=== PATIENT | female | born 1960 | race Caucasian/White ===

== ENCOUNTER → 2019-11-25 08:01 | Outpatient (CLI) | payer OTHER, SELFPAY ==
--- NOTE | ~2019-11-25 | US_ITS ---
US right upper quadrant INDICATION: Right upper quadrant pain. PROCEDURE: Realtime right upper abdominal ultrasound. COMPARISON: CT dated 05/15/2018 FINDINGS: The pancreas is normal without focal mass or pancreatic ductal dilation. Liver echotexture is increased, consistent with fatty infiltration. No focal mass. There is normal directional flow i n the portal vein. There are gallstones. No gallbladder wall thickening or pericholecystic fluid. Common bile duct [place] ures 4 mm. No sonographic Valdez's sign. IMPRESSION: 1: Cholelithiasis. 2: Hepatic steatosis. Reviewed, dictated and finalized at location A.
== END ==
PROVIDERS: PCP Internal Medicine; Visit Provider Student in an Organized Health Care Education/Training Program
DX: K80.20 Calculus of gallbladder without cholecystitis without obstruction (principal); K76.0 Fatty (change of) liver, not elsewhere classified
CPT/HCPCS: 76705

== ENCOUNTER 2020-01-23 00:35 | Emergency (ER) | payer OTHER, SELFPAY ==
--- NOTE | ~2020-01-23 | CT_ITS ---
EXAMINATION: CT abdomen pelvis w con DATE: 01/23/2020 03:12 INDICATION: Abdominal pain. TECHNIQUE: Computed tomography (CT) of the abdomen and pelvis was performed with 100 mL Omnipaque 350 intravenous contrast. Automated exposure control and iterative reconstruction technique were employe d. The dose-length product was 1228.43 mGy-cm. COMPARISON: CT abdomen and pelvis 05/15/2018 FINDINGS: The visualized portions of the lung bases demonstrate mild atelectasis. No pleural effusion . The heart size is normal. No pericardial effusion. There is diffuse hepatic steatosis. There are ga llstones in the gallbladder, which is normal in size. The spleen, pancreas, adrenal glands, normal. T here are cysts in the kidneys measuring up to 9 mm on the left. There is an 8 mm stone in left kidney . There is a 2 mm stone in left kidney. Uterine fibroids are noted. There is diverticulosis of the co danyelle without evidence of diverticulitis. There are no dilated loops of bowel. The appendix is normal. There is a lap band in expected position. There are no pathologically enlarged lymph nodes. There is no free intraperitoneal fluid. There is mild thoracolumbar spondylosis. IMPRESSION: 1. Cholelithiasis. No evidence of acute cholecystitis. 2. Diffuse hepatic steatosis. 3. Nonobstructing left kidney stones. Reviewed, dictated and finalized at location A.
[2020-01-23 00:57] VITALS: BP 131/96; PULSE 55; RESP 18; TEMP 36.8; O2SAT 98
[2020-01-23 01:58] LABS: Basophils Absolute Auto 0.1 K/mm3 (0.0-0.1); Basophils Percent Auto 0.6 % (0.2-1.2); Eosinophils Absolute Auto 0.4 K/mm3 (0-0.3); Eosinophils Percent Auto 3.5 % (0-4.4); Hematocrit 39.7 % (37.0-47.0); Hemoglobin 13.4 g/dL (12.0-15.0); Immature Granulocyte Absolute 0.03 K/mm3 (0.00-0.031); Immature Granulocyte Percent A 0.3 % (0-0.5); Lymphocytes Absolute Auto 3.84 K/mm3 (0.9-3.2); Mean Corpuscular HGB Conc 33.8 g/dl (32-36); Mean Corpuscular Hemoglobin 28.1 pg (26-34); Mean Corpuscular Volume 83.2 fl (80-100); Mean Platelet Volume 10.1 fl (7.4-10.4); Monocytes Absolute Auto 0.7 K/mm3 (0.1-0.6); Monocytes Percent Auto 6.7 % (2.6-8.5); Neutrophils Absolute Auto 5.7 K/mm3 (1.3-6.7); Neutrophils Percent Auto 52.9 % (45.5-73.1); Platelet Count Result 361 k/mm3 (150-375); Red Blood Count 4.77 M/mm3 (4.2-5.4); Red Cell Distribution Width 13.3 % (11.5-14.5); White Blood Count 10.7 K/mm3 (4.5-10.0)
[2020-01-23 02:04] LABS: Add Urine Microscopic? YES; Appearance Urine Clear (Clear); Bacteria Urine Trace /hpf; Bilirubin Urine Negative (Negative); Blood Urine Negative (Negative); Calcium Oxalate Crystals Urine Present /hpf; Color Urine Yellow (Yellow); Glucose Urine UA Negative (Negative); Ketones Urine Negative (Negative); Leukocyte Esterase Ur Negative LEU/UL (Negative); Mucus Urine Rare /lpf; Nitrate Urine Negative (Negative); Protein Urine 1+ mg/dL (Negative); Specific Grav Ur 1.017 (1.001-1.035); Squamous Epithelial Cell Urine Rare /hpf (Few); Urobilinogen Urine Negative mg/dL (<2.0)
[2020-01-23 02:19] VITALS: BP 128/77; PULSE 62; RESP 18; O2SAT 99
[2020-01-23 02:19] LABS: Alanine Aminotransferase 28 U/L (4-35); Albumin Level 4.6 g/dL (3.5-5.1); Alkaline Phosphatase 77 U/L (38-126); Aspartate Amino Transferase 25 U/L (14-36); Bilirubin,Total 0.2 mg/dL (0.2-1.3); Blood Urea Nitrogen 13 mg/dL (7-17); Carbon Dioxide 25 mmol/L (22-30); Chloride 103 mmol/L (98-107); Estimated Glomerular Filt Rate > 60; Glucose 126 mg/dL (65-105); Lipase 156 U/L (23-300); Potassium 3.9 mmol/L (3.4-5.0); Sodium 137 mmol/L (137-145)
--- NOTE | 2020-01-23 02:39 | PC.NURSE ---
pt calls this rn into room. pt states really? it's been 2 hours. why has the doctor been in here to see my roommate and not me when hes been here for 10 minutes? im in so much pain this rn states that doctor hasn't been in to see her neighbor and that she will be in as soon as she can. she states you have done nothing for me. i need a picture of my gallbladder to see whats going on. this rn informs pt that this rn placed and IV in her hand, dougie and sent blood, and sent urine to get some results. pt then raises her hand with IV in it and states i don't even care about this. i just need to know how my gallbladder is. how long is it going to be? this rn assures pt that doctor will be in as soon as she can and that i can't order a CT of her abdomen without doctor assessing her. pt states sorry im being crabby, but this is ridiculous. this RN apologizes and walks out of room. charge nurse notified of pt's concerns.
--- NOTE | 2020-01-23 02:50 | ED.ABDPAIN ---
HPI - Abdominal Pain General Chief Complaint: Abdominal Pain Stated Complaint: gall bladder burst Time Seen by Provider: 01/23/20 02:43 History of Present Illness HPI narrative: Patient presents to the ER with her right upper quadrant pain, and known gallbladder disease. She is scheduled to have it out on the , but she has been vomiting today cannot hold down even liquids, and the pain is much more intense. She gives it a 7 out of 10, with radiation to the back. She denies fever or chills, but has perimenopausal sweats. She does not smoke drink or do drugs. 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 Surgeries she has had 3 C-sections, and throat surgery on her vocal cords. Related Data Allergies Allergy/AdvReac Type Severity Reaction Status Date / Time No Known Allergies Allergy Unknown Verified 01/23/20 00:38 Review of Systems Review of Systems: Narrative: CONSTITUTIONAL: Denies fever, chills, or sweats. EYES: Denies visual changes, redness, or discharge. ENT: Denies rhinorrhea, congestion, sore throat, or otalgia. CARDIOVASCULAR: Denies chest pain, palpitations, or edema. RESPIRATORY: Denies cough or dyspnea. GASTROINTESTINAL: She has abdominal pain, nausea, vomiting, and diarrhea. GENITOURINARY: Denies dysuria or hematuria. SKIN: Denies rash or itching. MUSCULOSKELETAL: Denies back pain, joint pain, or myalgia. NEUROLOGIC: Denies headache, numbness, or weakness. PSYCHIATRIC: Denies anxiety or depression. [facility] Surgical History Surgical History (Updated 01/23/20 @ 02:52 by Gricelda Linares MD) History of Social History Social History (Updated 01/23/20 @ 02:53 by Gricelda Linares MD) Smoking status: Never smoker Alcohol intake: current Substance use: never Exam Narrative: Exam Narrative: GENERAL: Well-appearing, well-nourished, and in no acute distress. Overweight HEAD: Normocephalic, atraumatic. EYES: PERRLA and EOMI. ENT: Nares clear, no rhinorrhea or epistaxis. Mucous membranes moist. NECK: Supple. CHEST: Clear to auscultation. No respiratory distress. HEART: Regular rate and rhythm. No murmur heard. Normal peripheral pulses. ABDOMEN: Soft, nontender, nondistended, normal active bowel sounds. EXTREMITIES: Normal range of motion. No edema. SKIN: Warm, dry, no rash. NEURO: No focal deficits. Alert and oriented x3. PSYCH: Normal mood and affect. Imelda Course Reevaluation(s) Reevaluation #1: 4 AM she is feeling much better, nausea is as passed and pain is improved. She can be discharged to home, and follow-up on her scheduled date of the . Date: 01/23/20 Time: 04:02 Vital Signs Vital signs: Vital Signs Temperature 98.3 F 01/23/20 00:57 Pulse Rate 55 L 01/23/20 00:57 Respiratory Rate 18 01/23/20 00:57 Blood Pressure 131/96 H 01/23/20 00:57 Pulse Oximetry 98 01/23/20 00:57 Temperature 98.3 F 01/23/20 00:57 Pulse Rate 69 01/23/20 03:43 Respiratory Rate 18 01/23/20 03:43 Blood Pressure 129/83 01/23/20 03:43 Pulse Oximetry 100 01/23/20 03:43 MDM - Abdominal Pain MDM Narrative Medical decision making narrative: She is presenting with increased symptoms with her known gallbladder disease, it is too late in the day to get an ultrasound so we will get a CAT scan. She may need observation admission for IV hydration and pain management, even if she does not need emergent cholecystectomy. Medical Records Attestation: I reviewed the patient's medical records. Lab Data Attestation: I reviewed the patient's lab results. Result diagrams: 01/23/20 01:24 01/23/20 01:56 Labs: Lab Results 01/23/20 01/23/20 01/23/20 Range/Units 01:24 01:24 01:56 WBC 10.7 H (4.5-10.0) K/mm3 RBC 4.77 (4.2-5.4) M/mm3 Hgb 13.4 (12.0-15.0) g/dL Hct 39.7 (37.0-47.0) % MCV 83.2 (80-100) fl MCH 28.1 (26-34) pg MCHC 33.8 (32-36) g/dl RDW 13.3 (11.5-14.5) % Plt Count 361 (1
[2020-01-23] MEDS: ONDANSETRON INJ 4 MG/2 ML VIAL IV PUSH (02:54)
[2020-01-23] MEDS: SODIUM CHLORIDE 0.9% IV 1,000 ML 999 ML IV CONT (02:54)
[2020-01-23] MEDS: MORPHINE SULFATE 4 MG/ML INJ IV PUSH (02:54)
[2020-01-23 03:43] VITALS: BP 129/83; PULSE 69; RESP 18; O2SAT 100
[2020-01-23 04:12] VITALS: BP 120/76; PULSE 74; RESP 20; O2SAT 99
== END 2020-01-23 04:14 | disposition home or self-care (01) ==
PROVIDERS: Emergency Provider Emergency Medicine; PCP Internal Medicine
DX: K80.10 Calculus of gallbladder with chronic cholecystitis without obstruction (principal)
CPT/HCPCS: 36415; 74177; 80053; 81001; 81025; 83690; 85025; 96361; 96374; 96375; 99284; J2270; J2405; J7030; Q9967

== ENCOUNTER 2020-01-25 04:11 | Emergency (ER) | payer OTHER, SELFPAY ==
--- NOTE | ~2020-01-25 | US_ITS ---
EXAMINATION: US right upper quadrant DATE: 01/25/2020 07:58 INDICATION: Right upper quadrant pain TECHNIQUE: Multiple grayscale and Doppler ultrasound images of the abdomen were obtained. COMPARISON: 11/25/2019 FINDINGS: Bowel gas obscures visualization of the pancreas. The visualized portions of the pancreas a re unremarkable. The liver demonstrates increased echogenicity, heterogenous echotexture, and decreas ed through transmission. No surface nodularity. Normal hepatopetal flow in the main portal vein. Ston es are present in the gallbladder. There is no gallbladder wall thickening or pericholecystic fluid. The normal common bile duct measures 4 mm. Sonographic Valdez sign is positive. IMPRESSION: 1. Cholelithiasis and positive sonographic Valdez sign without gallbladder wall thickening or pericho lecystic fluid. Findings are equivocal for acute cholecystitis. Consider nuclear hepatobiliary scan. 2. Diffuse hepatic steatosis. Reviewed, dictated and finalized at location A. IMPRESSION: 1. Cholelithiasis and positive sonographic Valdez sign without gallbladder wall thickening or pericholecystic fluid. Findings are equivocal for acute cholecys titis. Consider nuclear hepatobiliary scan. 2. Diffuse hepatic steatosis.
[2020-01-25 04:18] VITALS: BP 153/93; PULSE 73; RESP 17; TEMP 36.4; O2SAT 98
[2020-01-25 04:54] LABS: Basophils Percent Auto 0.4 % (0.2-1.2); Eosinophils Absolute Auto 0.3 K/mm3 (0-0.3); Eosinophils Percent Auto 3.3 % (0-4.4); Hematocrit 39.3 % (37.0-47.0); Hemoglobin 13.3 g/dL (12.0-15.0); Immature Granulocyte Absolute 0.04 K/mm3 (0.00-0.031); Immature Granulocyte Percent A 0.4 % (0-0.5); Lymphocytes Absolute Auto 1.92 K/mm3 (0.9-3.2); Lymphocytes Percent Auto 20.6 % (18.3-44.2); Mean Corpuscular HGB Conc 33.8 g/dl (32-36); Mean Corpuscular Hemoglobin 28.2 pg (26-34); Mean Corpuscular Volume 83.3 fl (80-100); Mean Platelet Volume 9.3 fl (7.4-10.4); Monocytes Absolute Auto 0.5 K/mm3 (0.1-0.6); Monocytes Percent Auto 5.5 % (2.6-8.5); Neutrophils Absolute Auto 6.5 K/mm3 (1.3-6.7); Neutrophils Percent Auto 69.8 % (45.5-73.1); Platelet Count Result 326 k/mm3 (150-375); Red Blood Count 4.72 M/mm3 (4.2-5.4); Red Cell Distribution Width 13.3 % (11.5-14.5); White Blood Count 9.3 K/mm3 (4.5-10.0)
[2020-01-25] MEDS: MORPHINE SULFATE 4 MG/ML INJ IV PUSH ×3 (04:54→07:20)
[2020-01-25] MEDS: ONDANSETRON INJ 4 MG/2 ML VIAL IV PUSH (04:54)
[2020-01-25] MEDS: SODIUM CHLORIDE 0.9% IV 1,000 ML 999 ML IV CONT ×2 (04:55→08:20)
[2020-01-25 05:05] LABS: Alanine Aminotransferase 25 U/L (4-35); Albumin Level 4.4 g/dL (3.5-5.1); Alkaline Phosphatase 81 U/L (38-126); Aspartate Amino Transferase 23 U/L (14-36); Bilirubin,Total 0.2 mg/dL (0.2-1.3); Blood Urea Nitrogen 14 mg/dL (7-17); Calcium 9.4 mg/dL (8.4-10.2); Carbon Dioxide 25 mmol/L (22-30); Chloride 104 mmol/L (98-107); Estimated Glomerular Filt Rate > 60; Glucose 134 mg/dL (65-105); Lipase 153 U/L (23-300); Potassium 4.1 mmol/L (3.4-5.0); Sodium 137 mmol/L (137-145)
[2020-01-25 05:54] LABS: Add Urine Microscopic? YES; Appearance Urine Clear (Clear); Bacteria Urine Trace /hpf; Bilirubin Urine Negative (Negative); Blood Urine Negative (Negative); Calcium Oxalate Crystals Urine Many /hpf; Color Urine Yellow (Yellow); Glucose Urine UA Negative (Negative); Ketones Urine Negative (Negative); Leukocyte Esterase Ur Negative LEU/UL (Negative); Mucus Urine Rare /lpf; Nitrate Urine Negative (Negative); Protein Urine Negative (Negative); RBC Urine 0-2 /hpf (0-2); Specific Grav Ur 1.023 (1.001-1.035); Squamous Epithelial Cell Urine Rare /hpf (Few)
--- NOTE | 2020-01-25 06:09 | ED.ABDPAIN ---
HPI - Abdominal Pain General Chief Complaint: Abdominal Pain <Merlin Escobar MD - Last Filed: 01/25/20 06:40> Stated Complaint: ABD pain <Merlin Escobar MD - Last Filed: 01/25/20 06:40> Time Seen by Provider: 01/25/20 04:23 <Merlin Escobar MD - Last Filed: 01/25/20 06:40> History of Present Illness HPI narrative: Patient is a 59-year-old female who presents ER with right upper quadrant abdominal pain. Patient patient has been diagnosed with symptomatic cholelithiasis. She was seeing a general surgeon at [facility] to have a cholecystectomy when COVID-19 struck the country and every body shut down. She has had several visits the ER for symptomatic cholelithiasis and has been able to go home. She reports this is her third ER visit. Denies fevers or chills or sweats. Patient reports pain came back suddenly this morning. It sharp and in the right upper quadrant. It goes to her right back. Associate with nausea and vomiting. No alleviating factors, she has tried [place]. She reports she had some oatmeal last night. She has been avoiding fatty foods. <Merlin Escobar MD - Last Filed: 01/25/20 06:40> Related Data Allergies/Adverse Reactions: Allergies Allergy/AdvReac Type Severity Reaction Status Date / Time No Known Allergies Allergy Unknown Verified 01/23/20 00:38 <Merlin Escobar MD - Last Filed: 01/25/20 06:40> Review of Systems Review of Systems: All systems reviewed & are unremarkable except as noted in HPI and below <Merlin Escobar MD - Last Filed: 01/25/20 06:40> Constitutional: Constitutional: Denies chills, Denies fever(s) and Denies weakness <Merlin Escobar MD - Last Filed: 01/25/20 06:40> Gastrointestinal: Gastrointestinal: Reports abdominal pain, Denies diarrhea, Reports nausea and Reports vomiting <Merlin Escobar MD - Last Filed: 01/25/20 06:40> PMFSH Past Medical History Medical History: Medical History (Updated 01/25/20 @ 08:45 by Gricelda Linares MD) Anxiety Cholelithiasis Depression Hypertension <Merlin Escobar MD - Last Filed: 01/25/20 06:40> Surgical History Surgical History: Surgical History (Updated 01/25/20 @ 06:36 by Merlin Escobar MD) History of Hx of laparoscopic gastric banding <Merlin Escobar MD - Last Filed: 01/25/20 06:40> Social History Social History: Social History (Updated 01/23/20 @ 02:53 by Gricelda Linares MD) Smoking status: Never smoker Alcohol intake: current Substance use: never <Merlin Escobar MD - Last Filed: 01/25/20 06:40> Exam Narrative: Exam Narrative: GENERAL: Uncomfortable-appearing, well-nourished, and in no acute distress. HEAD: Normocephalic, atraumatic ENT: Mucous membranes moist. NECK: SuppleCHEST: Clear to auscultation. No respiratory distress. HEART: Regular rate and rhythm. Normal peripheral pulses. ABDOMEN: Soft, tender palpation right upper quadrant guarding, nondistended. EXTREMITIES: Normal range of motion. No edema. SKIN: Warm, dry, no rash. NEURO: Alert and oriented x3. PSYCH: Normal mood and affect. <Merlin Escobar MD - Last Filed: 01/25/20 06:40> Course Course Emergency Course: Patient is received 8 mg of morphine and still has persistent pain where she is doubled over the bed. Will obtain ultrasound and then patient require surgical consultation. <Merlin Escobar MD - Last Filed: 01/25/20 06:40> Reevaluation(s) Reevaluation #1: Assumed care at 7:08 AM. Patient is leaning up against her bed unable to sit, complaining of pain 5 out of 10. Her daughter is keeping her company. She would like some more pain medicine. She is awaiting ultrasound. She is hoping that something definitive will be done today. Gricelda Linares <Gricelda Linares MD - Last Filed: 01/25/20 08:46> Date: 01/25/20 <Gricelda Linares MD - Last Filed: 01/25/20 08:46> Time: 07:09 <Gricelda Linares MD - Last Filed: 01/25/20 08:46> Mary
[2020-01-25 06:15] VITALS: BP 133/87; PULSE 88; RESP 17; O2SAT 97
[2020-01-25 08:50] VITALS: BP 137/70; PULSE 80; RESP 12; O2SAT 99
== END 2020-01-25 08:53 | disposition home or self-care (01) ==
PROVIDERS: Emergency Medicine; Emergency Provider Emergency Medicine
DX: K80.12 Calculus of gallbladder with acute and chronic cholecystitis without obstruction (principal); I10 Essential (primary) hypertension; F32.9 Major depressive disorder, single episode, unspecified; F41.9 Anxiety disorder, unspecified; Z98.84 Bariatric surgery status
CPT/HCPCS: 36415; 76705; 80053; 81001; 81025; 83690; 85025; 96361; 96374; 96375; 96376; 99284; J2270; J2405; J7030

== ENCOUNTER 2020-01-27 07:56 | Outpatient (CLI) | payer OTHER, SELFPAY | END 2020-01-27 07:57 | disposition home or self-care (01) | PROVIDERS: Visit Provider Surgery | DX: Z01.812 Encounter for preprocedural laboratory examination (principal); Z20.828 Contact with and (suspected) exposure to other viral communicable diseases | CPT/HCPCS: 87635; C9803; U0003 ==

== ENCOUNTER 2020-01-27 14:15 | Outpatient (CLI) | payer OTHER, SELFPAY ==
--- NOTE | 2020-01-27 14:20 | ECG_ITS ---
Measurements Intervals [place] Rate: 59 P: 34 GA: 156 QRS: 3 QRSD: 91 T: 2 QT: 398 QTc: 396 Interpretive Statements SINUS BRADYCARDIA DELAYED PRECORDIAL R/S TRANSITION BORDERLINE T WAVE ABNORMALITY- INFERIOR LEADS BASELINE ARTIFACT- I, II, III, AVR, AVL, AVF BORDERLINE ECG Electronically Signed On 01-27-2020 14:53:37 CDT by Chino Marino D.O.
[2020-01-27 15:21] LABS: Alanine Aminotransferase 33 U/L (4-35); Albumin Level 4.4 g/dL (3.5-5.1); Alkaline Phosphatase 69 U/L (38-126); Amylase 72 U/L (30-110); Aspartate Amino Transferase 36 U/L (14-36); Bilirubin,Total 0.7 mg/dL (0.2-1.3); Lipase 90 U/L (23-300)
== END 2020-01-27 14:16 | disposition home or self-care (01) ==
LOC: ANHSURGERY 14:20
PROVIDERS: PCP Internal Medicine; Visit Provider Surgery
DX: Z01.818 Encounter for other preprocedural examination (principal); K80.20 Calculus of gallbladder without cholecystitis without obstruction; I10 Essential (primary) hypertension; R94.31 Abnormal electrocardiogram [ECG] [EKG]
CPT/HCPCS: 36415; 80076; 82150; 83690; 86850; 86900; 86901; 93005

== ENCOUNTER 2020-01-29 00:35 | Day surgery (SDC) | payer OTHER, SELFPAY ==
[2020-01-27 09:50] VITALS: BMI 42.0
--- NOTE | 2020-01-28 20:43 | PM.SD ---
Same Day Admit/Disch: HPI History of Present Illness Chief complaint: Cholecystitis, cholelithiasis Narrative: Marija Mathur is a 59 year old female who has had multiple episodes of postprandial RUQ abdominal pain and is known to have gallstones by U/S. She was set up to have cholecystectomy at another facility and when the pandemic hit, her surgery was postponed. She has continued to have symptoms and has had to go to the ER 3 times since then. She was in [place] ER on Monday with another episode of RUQ sharp, severe pain that radiated throught to her back and was associated with nausea and emesis. U/S done then showed gallstones and evidence of acute cholecystitis with positive sonographic Valdez's sign. Her pain again improved and she preferred to go home and have outpatient laparoscopic cholecystectomy. She has a son with Autism at home. She has continued to have RUQ pain although not as severe as when she was in the ER. She eats only a very bland diet and little of that. She has a history of a previous laparoscopic gastric banding about 7 years ago. She has also had an abdominoplasty several years ago. [facility] Past Medical History Medical History Anxiety Depression Hypertension Surgical History Surgical History (Updated 01/29/20 @ 07:18 by Adam Reid MD) History of abdominoplasty History of Hx of laparoscopic gastric banding Social History Social History Smoking status: Never smoker Alcohol intake: current Substance use: never Same Day Admit/Disch: Med Pre-admit Medications Home Medications Medication Instructions Recorded Confirmed Type ondansetron HCl [Zofran] 4 mg PO Q6H PRN #14 tablet 01/25/20 01/29/20 Rx oxycodone-acetaminophen [Percocet] 1 tablet PO Q4H PRN #20 tablet 01/25/20 01/29/20 Rx promethazine 25 mg RECTAL Q6H PRN #12 each 01/25/20 01/27/20 Rx Hui Mulligan 6 tablet PO DAILY 01/27/20 01/29/20 History cholecalciferol (vitamin D3) 125 mcg PO DAILY 01/27/20 01/29/20 History [Vitamin D3] lisinopril 10 mg PO DAILY 01/27/20 01/29/20 History lorazepam 1 mg PO TID PRN 01/27/20 01/29/20 History multivitamin 1 tablet PO DAILY 01/27/20 01/29/20 History sertraline 100 mg PO DAILY 01/27/20 01/29/20 History ketorolac 10 mg PO Q6H 4 Days #16 tablet 01/29/20 Rx oxycodone-acetaminophen [Percocet] 1 - 2 tablet PO Q6H PRN #12 tablet 01/29/20 Rx Exam Const: General: comfortable, no acute distress, alert, awake and uncomfortable Nutritional Appearance: obese Orientation/consciousness: patient oriented x3 Limitations: no limitations HENMT: Head: normocephalic and atraumatic Ears: hearing grossly normal bilaterally and external ears normal General nose exam: Normal external nose present, no nasal discharge noted and no epistaxis Face and sinus: normal facial exam, face symmetric, no tenderness and dry mucous membranes Mouth: Yes Normal oral and palatal mucosa present and No tongue abnormal Eyes: Conjunctivae: conjunctivae normal Sclera: sclerae normal Pupils: Equal, round and reactive pupils present EOM: EOMs intact bilaterally Neck: Neck: no lymphadenopathy, nontender and No submandibular swelling Thyroid: thyroid normal and nontender Lymphatic: lymphadenopathy not noted Chest: Chest palpation & inspection: mass and no tenderness Resp: Effort & Inspection: normal respiratory effort, no audible wheezes, no cough and no pursed lip breathing Auscultation: clear to auscultation bilaterally Cardio: Rate: regular rate Rhythm: regular rhythm Heart sounds: no gallops, no murmurs and no rubs GI: Inspection: normal to inspection, non-distended, obesity and scar GI Palp: Yes Soft to palpation, Yes Tenderness to palpation present (GI) (RUQ), No Hepatomegaly present, No Splenomegaly present, No Hernia present, No Palpable mass present and No Ascites present Auscultation: normoactive bowel so
[2020-01-29] VITALS (9 sets, daily range): BP systolic 102–147; BP diastolic 53–97; PULSE 54–77; RESP 12–18; TEMP 36.1–36.6; O2SAT 95–100
[2020-01-29] MEDS: LACTATED RINGERS 1,000 ML 30 ML IV CONT ×2 (06:20→08:45)
--- NOTE | 2020-01-29 06:59 | WPDANESEPPF ---
Anes - Initial Pre Proc Eval Procedure: Operation Date: 01/29/20 07:30 Proposed Procedures p Laparoscopic Cholecystectomy - Adam Reid MD Date/Time: 01/29/20 06:59 Surgeon: Adam Reid MD Pre Op Diagnosis: Cholecystitis, cholelithiasis Patient Data Age: 59 Gender: F Height: 5 ft 2 in Weight: 101.8 kg Last Vital Signs Temp 36.6 C 01/29/20 06:36 Pulse 66 01/29/20 06:36 Resp 18 01/29/20 06:36 BP 147/97 H 01/29/20 06:36 Pulse Ox 96 01/29/20 06:36 Allergies Allergy/AdvReac Type Severity Reaction Status Date / Time No Known Allergies Allergy Unknown Verified 01/29/20 06:00 Home Medications Medication Instructions Recorded Confirmed Type ondansetron HCl [Zofran] 4 mg PO Q6H PRN #14 tablet 01/25/20 01/29/20 Rx oxycodone-acetaminophen [Percocet] 1 tablet PO Q4H PRN #20 tablet 01/25/20 01/29/20 Rx promethazine 25 mg RECTAL Q6H PRN #12 each 01/25/20 01/27/20 Rx Hui Mulligan 6 tablet PO DAILY 01/27/20 01/29/20 History cholecalciferol (vitamin D3) 125 mcg PO DAILY 01/27/20 01/29/20 History [Vitamin D3] lisinopril 10 mg PO DAILY 01/27/20 01/29/20 History lorazepam 1 mg PO TID PRN 01/27/20 01/29/20 History multivitamin 1 tablet PO DAILY 01/27/20 01/29/20 History sertraline 100 mg PO DAILY 01/27/20 01/29/20 History Patient hx anesthesia problems: none Family hx anesthesia problems: none PMFSH Past Medical History Medical History Anxiety Depression Hypertension Surgical History Surgical History History of Hx of laparoscopic gastric banding Social History Social History Smoking status: Never smoker Alcohol intake: current Substance use: never Anes - Eval Final PreProcedure Day of Procedure 01/29/20 06:59 Patient weight: morbidly obese Heart: regular rate and rhythm Lungs: clear to auscultation Airway: Mallampati scale class III Neurological: alert and oriented Last oral intake: >/= 8 hours ASA classification: III Emergent: no Anesthetic plan: proceed Anesthesia type and monitoring: general ETT and standard monitoring Informed Consent: The patient's anesthetic plan and its attendant risks and benefits were discussed with the patient/family/POA. Questions were solicited and answers provided to the satisfaction of the patient/family/POA.
--- NOTE | 2020-01-29 07:15 | WPDHPUPDATE1 ---
History and Physical Update Update Date/Time: 01/29/20 07:15 History and Physical has been reviewed, including an updated exam of the patient. There are NO changes in the patient's condition. Risks, benefits, and alternatives have been discussed and questions answered. Patient agrees to proceed with procedure.
[2020-01-29] MEDS: ceFAZolin 2 GM/D5W 50 ML 2 GM/50 ML BAG IVPB (07:26)
[2020-01-29] MEDS: BUPIVACAINE/EPINEPHRINE 0.5% 30 ML VIAL INFILTRATE (08:06)
--- NOTE | 2020-01-29 08:57 | P.OP_ITS ---
Procedure Note - Detailed Date of procedure: 01/29/20 Pre-op diagnosis: Acute on chronic cholecystitis, cholelithiasis Acute on chronic cholecystitis, cholelithiasis Post-op diagnosis: other (Acute on chronic cholecystitis, cholelithiasis with cystic duct obstruction and hydrops) Procedure performed: Laparoscopic cholecystectomy Description of procedure: The patient was taken to surgery and induced into general anesthesia. The abdomen was prepped and draped. Trocars were placed in the usual fashion using 0.5% Marcaine with epinephrine and applied Medical optical trocars. A 5 millimeter camera was used. The gallbladder had a thickened wall and was tensely distended. There were really no adhesions to the gallbladder but it was obviously acutely and chronically inflamed. The gallbladder was decompressed with a laparoscopic aspirator. The bile was clear consistent with hydrops of the gallbladder. The wall of the gallbladder was too thickened to close the cholecystotomy. The gallbladder was retracted anterosuperiorly. There were numerous adhesions in the lower 3rd of the gallbladder in the area of the infundibulum and cholecystohepatic triangle. There was a large stone in the neck of the gallbladder as well. We had to place an extra 5 mm port in the left mid abdomen to retract the lateral segment of the left lobe of the liver so that the gallbladder could be adequately exposed. Adhesions to the gallbladder were taken down so that the cholecystohepatic triangle was exposed. Traction was placed on the infundibulum. The cystic duct and cystic artery were dissected out very clearly. The dissection was more bloody than usual due to the acute and chronic inflammation. The patient also had fatty liver which tended to tear with retraction an added to the bleeding. The gallbladder was dissected off the liver at its lower 3rd. Critical view was achieved. We securely clipped and divided the cystic duct and cystic artery. The gallbladder was then further retracted so that the peritoneal attachments to the liver could be divided. There was a lot of chronic and acute inflammation between the gallbladder and the liver. Fortunately we were able to dissect the gallbladder free of the liver without any significant injury to the liver surface. There were numerous stones in the gallbladder. Once the gallbladder was freed entirely, it was placed in an Endo-Catch bag and retrieved through the 10 11 epigastric trocar site. The epigastric trocar was then replaced. We reviewed the right upper quadrant. It was irrigated and suctioned. It had to be irrigated and suctioned repeatedly. Very little additional cautery was required as the gallbladder fossa and right upper quadrant were actually pretty dry. All looked good with no evidence of bleeding or bile leakage. We evacuated CO2 and removed the trocar sleeves. The fascia at the epigastric trocar site was closed with 0 Vicryl suture. Skin wounds were closed with subcuticular 4 O Monocryl skin suture. The wounds were dressed with Exofin surgical adhesive. Patient was awakened and taken to recovery in good condition. Sponge and needle counts were correct x2. Anesthesia: GETA and local (0.5% Marcaine with epinephrine) Surgeon: Adam Reid MD [employer]otive Airconditioning Mechanic: Blade ARIAS Estimated blood loss (mL): 30 Drains: No Packing: No Pathology: yes (Gallbladder) Complications: None Condition: stable Disposition: PACU Findings: Severe acute on chronic inflammation, hydrops, several gallstones noted including a large gallstone impacted in the neck of the gallbladder. No biliary ductal dilatation, fatty liver.
[2020-01-29] MEDS: KETOROLAC 30 MG/ML VIAL (*BKC) IV PUSH (09:10)
--- NOTE | 2020-01-29 10:05 | SUR.PHASEII ---
1005 spoke with daughter and gave an update on pt condition
== END 2020-01-29 10:50 | disposition home or self-care (01) ==
PROVIDERS: PCP Internal Medicine; Visit Provider Surgery
PROC: 0FT44ZZ Resection of Gallbladder, Percutaneous Endoscopic Approach (ICD-10-PCS; CPT 47562; principal; 2020-01-29 07:30)
DX: K80.11 Calculus of gallbladder with chronic cholecystitis with obstruction (principal); K76.0 Fatty (change of) liver, not elsewhere classified; I10 Essential (primary) hypertension; F41.8 Other specified anxiety disorders; Z98.84 Bariatric surgery status; E66.01 Morbid (severe) obesity due to excess calories; Z68.41 Body mass index [BMI] 40.0-44.9, adult
CPT/HCPCS: 47562; 88304; C1713; J0131; J0690; J1100; J1885; J2250; J2405; J2704; J2710; J3010; J7120

== ENCOUNTER → 2022-02-16 14:31 | Outpatient (CLI) | payer OTHER, SELFPAY ==
--- NOTE | ~2022-02-16 | US_ITS ---
EXAMINATION: US pelvic complete w TV DATE: 02/16/2022 16:07 INDICATION: Pelvic mass Comparison:No prior studies for comparison. TECHNIQUE: Multiple transabdominal and endovaginal sonographic images of the pelvis performed. FINDINGS: The uterus measures 7.1 x 3.5 x 4.7 cm. There are uterine fibroids, largest at the fundus m easuring 3.1 x 2.2 x 2.5 cm. The endometrial complex measures 4 mm. The right ovary is not visualized. Left ovary measures 2.5 x 1.1 x 2.5 cm. There is no free fluid in the pelvis. There are no abnormal masses seen on either side. IMPRESSION: 1. Uterine fibroids, largest at the fundus measuring 3.1 cm. Reviewed, dictated and finalized at location B.
== END ==
PROVIDERS: PCP Internal Medicine; Visit Provider Registered Nurse
DX: R19.00 Intra-abdominal and pelvic swelling, mass and lump, unspecified site (principal); D25.9 Leiomyoma of uterus, unspecified
CPT/HCPCS: 76830; 76856

== ENCOUNTER 2023-04-03 02:57 | Day surgery (SDC) | payer OTHER, SELFPAY ==
[2023-03-22 14:10] VITALS: BMI 31.6
--- NOTE | 2023-03-22 14:14 | SUR.PREOP ---
Report to the Outpatient Waiting Room, entrance under the green pavilion located off [facility], at time 0700 on date _04/03_. Planned Procedure Time: __0900_. Time changes happen often and if your time is changed the preop area will call you the afternoon before. - You and your visitor will be asked to self-screen and do not enter if you have any COVID symptoms. - A mask is optional within the hospital at this time. Patients may have clear liquids (water, carbonated beverages, clear teas, apple juice) until 3 hours prior to surgery with a maximum of 20 ounces. - No food from midnight until time of surgery before 0600 am - Infants may have breast milk until 4 hours before surgery, formula 6 hours prior to surgery. - Children will be allowed to drink immediately following surgery. If applicable, please bring a bottle or sippy cup to assist with drinking. Juice, water, soda, and popsicles are readily available. For infants on formula, please bring formula the day of surgery. Pacifiers are allowed. Take the following medications with a SIP of water the morning of surgery: zoloft, levothyroxine DO NOT STOP ANY OF YOUR OTHER PRESCRIPTION MEDICATIONS PRIOR TO SURGERY ?EXCEPT THE FOLLOWING Medications to discontinue per physician vitamins and supplements 3 days prior, oxybutinin day of surgery Date to take last dose Please no make-up, nail djiboutian, hairspray, perfume, deodorant, or body powder the day of surgery. No jewelry (including any body piercings) or valuables the day of surgery, leave them at home. Please take a shower or bath the night before, or the morning of, surgery with an antibacterial soap. Wear comfortable, loose fitting clothing. Children are encouraged to wear pajamas. - Jewelry must be removed prior to entering the operating room. Rings and piercings that are not removed may be cut off. - The hospital will not accept responsibility for valuables. - Please leave all valuables, including medications, at home the day of surgery. If you are going home after surgery, a licensed courier delivery driver must drive you home. - NO public transportation without another adult if you receive anesthesia. - We recommend that an adult stay with you for 24 hours following discharge. - We also recommend that you do not drive, make important decision, drink alcoholic beverages, or take any drugs that were not prescribed by your health care provider for at least 24 hours after your discharge time. For Pediatric surgeries, we recommend two adults accompany the child home. Follow any additional instructions given to you from your surgeon. If you or anyone in your household have experienced Covid symptoms in the past week, please notify your surgeon or the nurse liaison at the phone number below for possible testing. Telephone instructions given to _patient_and asked if any additional questions and then verbalized understanding. Patient advised to call surgeon office or pre surgery nurse liaison [phone] if any additional questions.
--- NOTE | 2023-03-31 18:12 | P.PNAN_ITS ---
Anes - Eval Pre Procedure Procedure: Operation Date: 04/03/23 09:00 Proposed Procedures p Hysteroscopy Dilation and Curettage - Sera Kam MD Date/Time: 03/31/23 18:12 Pre Op Diagnosis: post menopausal bleeding Patient Data Age: 62 Gender: F Height: 1.57 m Weight: 78.47 kg Allergies Allergy/AdvReac Type Severity Reaction Status Date / Time povidone-iodine Allergy Rash Verified 07/09/20 12:51 [From Betadine] soap [From Betadine] Allergy Rash Verified 07/09/20 12:51 Home Medications Medication Instructions Recorded Confirmed Type lisinopril 10 mg tablet 10 mg PO DAILY 01/27/20 03/22/23 History multivitamin 1 tablet PO DAILY 01/27/20 03/22/23 History sertraline 100 mg tablet 100 mg PO DAILY 01/27/20 03/22/23 History levothyroxine 50 mcg tablet 50 mcg PO DAILY 03/22/23 03/22/23 History oxybutynin chloride 5 mg tablet 2.5 mg PO BID 03/22/23 03/22/23 History sertraline 50 mg tablet 50 mg PO DAILY 03/22/23 03/22/23 History Patient hx anesthesia problems: none Family hx anesthesia problems: none Results Review: All pre-operative results and documents have been reviewed as part of the pre- operative evaluation. [facility] Past Medical History Medical History (Updated 03/31/23 @ 18:13 by Nia Carballo CRNA) Anxiety Depression Hypertension Hypothyroid TOYIN (obstructive sleep apnea) Psoriasis Surgical History Surgical History (System 07/09/20 @ 12:51 by Rosa August) History of abdominoplasty History of History of laparoscopic cholecystectomy 01/29/20 Hx of laparoscopic gastric banding Social History Social History (System 07/09/20 @ 12:51 by Rosa August) Smoking status: Never smoker Alcohol intake: current Substance use: never Living arrangements: with family Spiritual care concerns: No Exam Day of Procedure 03/31/23 18:12
[2023-04-03 07:12] VITALS: BP 124/69; PULSE 62; RESP 16; TEMP 36.2; O2SAT 100
--- NOTE | 2023-04-03 07:25 | P.HP_ITS ---
History of Present Illness History of Present Illness Consent: Risks, benefits, and alternatives have been discussed and questions answered. Patient agrees to proceed with procedure. Chief complaint: post menopausal bleeding Narrative: Marija Mathur is a 62 year old female with approximately 3 months vaginal spotting on and off. Patient underwent pelvic ultrasound that revealed the endometrial lining to be 4mm. There are also fibroids present. Due to the prolonged bleeding episodes it was recommended to proceed with D&C hysteroscopy. Risks of infection, bleeding, perforation, and possible pathology are discussed. Patient voices understanding and agrees to proceed. Review of Systems Review of Systems: not repeated day of surgery; patient states no changes in status [facility] Past Medical History Medical History (Updated 04/03/23 @ 07:31 by Sera Kam MD) Anxiety Depression History of kidney stones Hx of benign neoplasm of larynx polyps removed Hypertension Hypothyroid TOYIN (obstructive sleep apnea) Psoriasis Surgical History Surgical History (Updated 04/03/23 @ 07:29 by Sera Kam MD) History of abdominoplasty History of X3 History of laparoscopic cholecystectomy 01/29/20 Hx of laparoscopic gastric banding Social History Social History (System 07/09/20 @ 12:51 by Rosa August) Smoking status: Never smoker Alcohol intake: current Substance use: never Living arrangements: with family Spiritual care concerns: No Meds Home Medications and Allergies Home Medications Medication Instructions Recorded Confirmed Type lisinopril 10 mg tablet 10 mg PO DAILY 01/27/20 04/03/23 History multivitamin 1 tablet PO DAILY 01/27/20 04/03/23 History sertraline 100 mg tablet 100 mg PO DAILY 01/27/20 04/03/23 History levothyroxine 50 mcg tablet 50 mcg PO DAILY 03/22/23 04/03/23 History oxybutynin chloride 5 mg tablet 2.5 mg PO BID 03/22/23 04/03/23 History sertraline 50 mg tablet 50 mg PO DAILY 03/22/23 04/03/23 History Allergies Allergy/AdvReac Type Severity Reaction Status Date / Time povidone-iodine Allergy Mild Rash Verified 04/03/23 07:24 [From Betadine] soap [From Betadine] Allergy Mild Rash Verified 04/03/23 07:24 Exam Const: General: healthy appearing and alert Orientation/consciousness: patient oriented x3 Resp: Effort & Inspection: normal respiratory effort GI: GI Palp: Yes Soft to palpation, No Tenderness to palpation present (GI) and No Palpable mass present : External Female Exam: normal external appearance Speculum Exam - Vagina: normal appearance of the vagina and normal vaginal discharge Speculum Exam - Cervix: normal appearance of the cervix Bimanual exam- vagina & uteru s: uterine size normal and consistency normal Bimanual Exam- Adnexa, other: normal adnexae and No adnexal tenderness Neuro: General: patient oriented x3 Assessment and Plan Assessment and plan (1) Post-menopausal bleeding: Code(s): N95.0 - Postmenopausal bleeding Status: Acute Assessment and Plan: plan to proceed with D&C hysteroscopy
--- NOTE | 2023-04-03 07:25 | WPDHPUPDATE1 ---
History and Physical Update Update Date/Time: 04/03/23 07:25 History and Physical has been reviewed, including an updated exam of the patient. There are NO changes in the patient's condition. Risks, benefits, and alternatives have been discussed and questions answered. Patient agrees to proceed with procedure.
[2023-04-03] MEDS: ACETAMINOPHEN 500 MG TABLET 1000 MG PO (07:33)
[2023-04-03] MEDS: LACTATED RINGERS 1,000 ML 30 ML IV CONT (07:41)
--- NOTE | 2023-04-03 07:57 | P.PNAN_ITS ---
Anes - Eval Final PreProcedure Day of Procedure 04/03/23 07:57 Patient weight: obese Heart: regular rate and rhythm Lungs: clear to auscultation Airway: Mallampati scale class II Neurological: alert and oriented Last oral intake: >/= 8 hours ASA classification: III Emergent: no Anesthetic plan: proceed Anesthesia type and monitoring: general GIVS and standard monitoring Results Review: All pre-operative results and documents have been reviewed as part of the pre- operative evaluation. Informed Consent: The patient's anesthetic plan and its attendant risks and benefits were discussed with the patient/family/POA. Questions were solicited and answers provided to the satisfaction of the patient/family/POA.
[2023-04-03] MEDS: KETOROLAC 30 MG/ML VIAL (*BKC) IV PUSH (09:15)
--- NOTE | 2023-04-03 09:21 | W.PM.PROC2 ---
Procedure Note - Detailed Date of Procedure 04/03/23 Pre-op Diagnosis post menopausal bleeding Post-op Diagnosis Same Procedure Performed Hysteroscopy with excision of polyp and D and C Surgeon Sera Kam MD Anesthesia MAC Findings the vagina severely atrophic cervix is stenotic endometrium appears grossly atrophic with a left cornu polyp uterus sounds to 8cm Description of Procedure The patient taken to the operating room and placed under anesthesia in the dorsal lithotomy position. She was prepped and draped in usual sterile fashion. [place] speculum was placed in the vagina and the cervix grasped on the anterior lip with a tenaculum. The os Finders are needed to open the cervical stenosis. The uterus was then sounded to 8cm. The cervix is serially dilated to a 6 Hegar. The diagnostic hysteroscope is placed. A small polyp was noted near the left fundus near the tubal opening. The resection device is opened and placed under direct visualization it is removed in its entirety. The instruments are removed from the uterus and the small sharp curette used to curette the endometrium until a good uterine cry was noted in all areas. Minimal material was obtained consistent with the severely atrophic appearance. All instruments are removed. Sponge, needle, and instrument counts are correct per the OR staff. The patient was awakened from anesthesia and taken to recovery in stable condition. Estimated Blood Loss 5 Drains No Packing No Pathology Yes ( Endometrial shavings and curettings) Complications No immediate complications Condition Stable Disposition PACU
[2023-04-03 09:23] VITALS: BP 97/52; PULSE 57; RESP 16; O2SAT 95
[2023-04-03 09:50] VITALS: BP 97/63; PULSE 57; RESP 20
[2023-04-03 10:19] VITALS: BP 110/64; PULSE 60; RESP 20
== END 2023-04-03 10:23 | disposition home or self-care (01) ==
PROVIDERS: PCP Internal Medicine; Visit Provider Obstetrics & Gynecology Gynecology
PROC: 0U5B8ZZ Destruction of Endometrium, Via Natural or Artificial Opening Endoscopic (ICD-10-PCS; CPT 58563; principal; 2023-04-03 09:00)
DX: N95.0 Postmenopausal bleeding (principal); N84.0 Polyp of corpus uteri; Z86.018 Personal history of other benign neoplasm; I10 Essential (primary) hypertension; E03.9 Hypothyroidism, unspecified; G47.33 Obstructive sleep apnea (adult) (pediatric); L40.9 Psoriasis, unspecified; F32.A Depression, unspecified; F41.9 Anxiety disorder, unspecified; E66.9 Obesity, unspecified; Z68.31 Body mass index [BMI] 31.0-31.9, adult; Z98.84 Bariatric surgery status
CPT/HCPCS: 58558; 88305; A9270; J1100; J1885; J2250; J2405; J2704; J3010; J7120